=== PATIENT | female | born 1965 | race Caucasian/White ===

== ENCOUNTER 2017-07-12 16:18 | Emergency (ER) | payer BC, OTHER ==
[2017-07-12] MEDS ORDERED: Adacel (T-DAP) 0.5 ML VIAL ONE (16:48)
[2017-07-12] MEDS ORDERED: Bacitracin Zinc 1 Packet ONE (16:56)
== END 2017-07-12 17:02 | disposition home or self-care (01) ==
LOC: BURERS 16:18
DX: S51.811A Laceration without foreign body of right forearm, initial encounter (principal); Z23 Encounter for immunization; I10 Essential (primary) hypertension; F41.9 Anxiety disorder, unspecified; F31.9 Bipolar disorder, unspecified; Z87.891 Personal history of nicotine dependence; Z79.899 Other long term (current) drug therapy; W26.8XXA Contact with other sharp object(s), not elsewhere classified, initial encounter
CPT/HCPCS: 12001; 90471; 90715

== ENCOUNTER 2017-07-22 14:01 | Emergency (ER) | payer BC | END 2017-07-22 14:25 | disposition home or self-care (01) | LOC: BURERS 14:01 | DX: S51.811D Laceration without foreign body of right forearm, subsequent encounter (principal); I10 Essential (primary) hypertension; F31.9 Bipolar disorder, unspecified; F41.9 Anxiety disorder, unspecified; Z87.891 Personal history of nicotine dependence; W26.8XXD Contact with other sharp object(s), not elsewhere classified, subsequent encounter ==

== ENCOUNTER 2017-08-03 15:31 | Emergency (ER) | payer BC ==
[2017-08-03] MEDS ORDERED: Ondansetron ODT 4 MG TAB ONE (15:51)
[2017-08-03] MEDS ORDERED: AMOXicillin 250 MG CAP ONE (16:10)
== END 2017-08-03 16:13 | disposition home or self-care (01) ==
LOC: BURERS 15:31
DX: J20.9 Acute bronchitis, unspecified (principal); I10 Essential (primary) hypertension; F41.9 Anxiety disorder, unspecified; F31.9 Bipolar disorder, unspecified; Z87.891 Personal history of nicotine dependence; Z79.899 Other long term (current) drug therapy
CPT/HCPCS: 99283; Q0162

== ENCOUNTER → 2018-09-13 | Emergency (ER) | payer BC ==
[~2018-09-13] MED LIST: Bacitracin Zinc 1 Packet ONE; Cephalexin 500 MG CAP ONE; Lidocaine 1% PF 5 ML VIAL ONE
--- NOTE | 2018-09-13 21:25 | RAD ---
RIGHT GREAT TOE 09/13/18 There is a fracture at the base of the distal phalanx on the plantar surface of the bone near the IP joint. There is no significant displacement. The remainder of the great toe appears intact. IMPRESSION: Distal phalanx fracture near the IP joint. POS: HOME
== END ==
LOC: BURERS 08:18
DX: S92.424A Nondisplaced fracture of distal phalanx of right great toe, initial encounter for closed fracture (principal); S91.111A Laceration without foreign body of right great toe without damage to nail, initial encounter; I10 Essential (primary) hypertension; F41.9 Anxiety disorder, unspecified; F31.9 Bipolar disorder, unspecified; Z87.891 Personal history of nicotine dependence; Z79.899 Other long term (current) drug therapy; W22.8XXA Striking against or struck by other objects, initial encounter
CPT/HCPCS: 12002; J2001

== ENCOUNTER 2020-08-21 21:10 | Emergency (ER) | payer BC, SELFPAY ==
--- NOTE | 2020-08-21 21:58 | RAD ---
Chest one view HISTORY: Dyspnea. COMPARISON: 10/17/2017. FINDINGS: Cardiac silhouette is magnified by projection. Pulmonary vasculature is unremarkable. Mediastinum is midline. No lobar consolidation or evidence of pneumothorax. IMPRESSION : No abnormalities are demonstrated.
[2020-08-21 21:59] LABS: #Basophils 0.1 thou/uL (0.0-0.2); #Eosinphils 0.2 thou/uL (0.0-0.7); #Lymphocytes 2.2 thou/uL (1.20-3.40); #Monocytes 0.4 thou/uL (0.11-0.59); #Neutrophils 4.7 thou/uL (1.40-6.50); %Basophils 0.8 % (0.0-1.0); %Eosinophils 2.1 % (0.0-10.0); %Lymphocytes 29.1 % (21.0-51.0); %Monocytes 4.8 % (0.0-10.0); %Neutrophils 63.1 % (42.0-75.0); Hemoglobin 14.9 g/dL (12.0-16.0); Mean Corpuscular HGB CONC 34.6 g/dL (32.0-36.0); Mean Corpuscular Hemoglobin 33.6 pg (27.0-31.0); Mean Corpuscular Volume 97.2 fL (78.0-98.0); Mean Platelet Volume 8.1 fL (7.4-10.4); Platelet Count 275 thou/uL (130-400); RBC Distribution Width 11.5 % (11.5-14.5); Red Blood Cell (RBC) Count 4.43 mill/uL (4.20-5.40); White Blood Cell (WBC) Count 7.5 thou/uL (4.8-10.8)
[2020-08-21 22:04] LABS: PTT 27.3 sec (22.9-36.1); Prothrombin Time 13.3 sec (12.0-14.7)
[2020-08-21 22:05] LABS: D-Dimer Test 0.31 *mcg/mL (0.27-0.43)
[2020-08-21 22:12] LABS: ALT (SGPT) 93 U/L (8-55); AST (SGOT) 124 U/L (5-34); Albumin 4.1 g/dL (3.5-5.0); Alkaline Phosphatase 89 U/L (40-110); Anion Gap 14 mmol/L (10-20); BUN (Urea Nitrogen) 14 mg/dL (9.8-20.1); Bilirubin, Total 0.3 mg/dL (0.2-1.2); Calc. Creatinine Clearance 0 mL/min (70-130); Calcium 8.8 mg/dL (7.8-10.44); Carbon Dioxide 22 mmol/L (22-29); Chloride 108 mmol/L (98-107); Globulin 2.6 g/dL (2.4-3.5); Glucose 122 mg/dL (70-105); Potassium 3.4 mmol/L (3.5-5.1); Protein, Total 6.7 g/dL (6.0-8.3); Sodium 141 mmol/L (136-145)
[2020-08-21] MEDS ORDERED: Diltiazem 125 MG/25 ML ONE (22:20)
[2020-08-21] MEDS ORDERED: Enoxaparin Sodium 100 MG/ML SYRINGE ONE (22:28)
[2020-08-21 22:30] LABS: CKMB 1.6 ng/mL (0-6.6)
[2020-08-22] MEDS ORDERED: Digoxin 0.5 MG/2 ML AMP ONE (00:12)
== END 2020-08-22 01:49 | disposition short-term general hospital (02) ==
LOC: BURERS 21:10
DX: I48.91 Unspecified atrial fibrillation (principal); I11.0 Hypertensive heart disease with heart failure; I50.9 Heart failure, unspecified; R77.8 Other specified abnormalities of plasma proteins; I49.9 Cardiac arrhythmia, unspecified; M79.7 Fibromyalgia; Z87.891 Personal history of nicotine dependence; Z79.899 Other long term (current) drug therapy
CPT/HCPCS: 71045; 80053; 82553; 83605; 83880; 84443; 84484; 85025; 85379; 85610; 85730; 93005; 94760; 96365; 96366; 96372; 96375; 96376; J1160; J1650

== ENCOUNTER 2021-11-27 11:47 | Emergency (ER) | payer BC | END 2021-11-27 12:40 | disposition home or self-care (01) | LOC: BURERS 11:47 | DX: S93.402A Sprain of unspecified ligament of left ankle, initial encounter (principal); I48.91 Unspecified atrial fibrillation; M79.7 Fibromyalgia; I10 Essential (primary) hypertension; X50.1XXA Overexertion from prolonged static or awkward postures, initial encounter; Z87.891 Personal history of nicotine dependence; Z79.01 Long term (current) use of anticoagulants; Z79.899 Other long term (current) drug therapy ==